=== PATIENT | female | born 1965 | race Caucasian/White ===

== ENCOUNTER 2019-07-31 07:31 | Day surgery (SDC) | payer OTHER ==
[~2019-07-31] VITALS: Ht 162.6 cm; Wt 81.6 kg
[2019-07-31] MEDS ORDERED: fentaNYL 0.05 MG/ML VIAL ONE (09:47)
[2019-07-31] MEDS ORDERED: LIDOCAINE 2% 100 MG/5 ML UJET TP ONE (09:47)
== END 2019-07-31 11:25 | disposition home or self-care (01) ==
LOC: MOR 07:31 → MMU 07:32 → MOR 11:25
PROVIDERS: ATTEND Internal Medicine Gastroenterology
DX: Z12.11 Encounter for screening for malignant neoplasm of colon (principal); D12.3 Benign neoplasm of transverse colon; K21.9 Gastro-esophageal reflux disease without esophagitis; E66.9 Obesity, unspecified; Z68.34 Body mass index [BMI] 34.0-34.9, adult
CPT/HCPCS: 45385; 81025; J3010